=== PATIENT | male | born 1935 | race Caucasian/White ===

== ENCOUNTER 2017-03-02 14:08 | Emergency (ER) | payer MEDICARE, BC ==
[2017-03-02 14:23] VITALS: BP 146/66
--- NOTE | 2017-03-02 14:42 | UC ---
HPI Febrile Illness - HPI Summary HPI Summary: 3 days hx of fatigue, fever , chills, sever body aches, cough, chest congestion unsteady gait due to weakness no n/v/d/c , no urinary sx. - History of Current Complaint Chief Complaint: UCGeneralIllness Time Seen by Provider: 03/02/17 14:14 Hx Obtained From: Patient Onset/Duration: Started Days Ago - 3 Timing: Constant Initial Severity: Moderate Current Severity: Severe Aggravating Factors: Nothing Alleviating Factors: Nothing Associated Signs and Symptoms: Cough, Diaphoresis, Headache, Joint Pain, Myalgia , SOB, Weakness - Allergy/Home Medications Allergies/Adverse Reactions: Allergies Allergy/AdvReac Type Severity Reaction Status Date / Time Codeine Allergy Hives Verified 03/02/17 14:18 Prednisone Allergy Hives Verified 03/02/17 14:18 soaps Allergy Unknown Uncoded 03/02/17 14:18 Reaction Details Home Medications: Home Medications Mkceure-Cxnmiuz-Eaxsas Salicyl [Bengay Ultra Strength 4-10-30 %] 1 cre TOPICAL SEE INSTRUCTIONS PRN 03/02/17 [History Confirmed 03/02/17] Latanoprost 0.005%* [Xalatan 0.005%*] 1 drop BOTH EYES QPM 03/02/17 [History Confirmed 03/02/17] Losartan/HCTZ 100/25 (NF) [Hyzaar 100/25 (NF)] 1 tab PO DAILY 03/02/17 [History Confirmed 03/02/17] Metoprolol Succinate XL TAB* [Toprol XL TAB*] 12.5 mg PO DAILY 03/02/17 [ History Confirmed 03/02/17] Naproxen Sodium [Naproxen Sodium 220 mg] 220 mg PO Q12H PRN 03/02/17 [History Confirmed 03/02/17] Pravastatin Sodium [Pravachol] 40 mg PO DAILY 03/02/17 [History Confirmed ] PMH/Surg Hx/FS Hx/Imm Hx Cardiovascular History: Hypertension - Surgical History Surgical History: Yes Surgery Procedure, Year, and Place: Right INguinal Herniorrhaphy, Bilateral [facility]AY - Family History Known Family History: Positive: Hypertension - Social History Alcohol Use: None Substance Use Type: None Smoking Status (MU): Former Smoker When Did the Patient Quit Smoking/Using Tobacco: 1993 - Immunization History Most Recent Influenza Vaccination: Not the Season Review of Systems Constitutional: Fever, Chills, Fatigue Skin: Negative Eyes: Negative ENT: Negative Respiratory: Cough Cardiovascular: Negative Gastrointestinal: Negative Genitourinary: Negative Motor: Negative Musculoskeletal: Arthralgia, Myalgia Neurological: Headache, Weakness Psychological: Negative Is Patient Immunocompromised?: No All Other Systems Reviewed And Are Negative: Yes Physical Exam Triage Information Reviewed: Yes Appearance: Ill-Appearing Vital Signs: Initial Vital Signs Temp 99.1 F 03/02/17 14:15 Pulse 84 03/02/17 14:15 Resp 18 03/02/17 14:15 BP 146/66 03/02/17 14:15 Pulse Ox 98 03/02/17 14:15 Vital Signs Reviewed: Yes Eye Exam: Normal Eyes: Positive: Conjunctiva Clear ENT: Positive: Normal ENT inspection, Hearing grossly normal, Pharynx normal, Pharyngeal erythema Neck: Positive: Supple, Nontender, No Lymphadenopathy Respiratory: Positive: Chest non-tender, Decreased breath sounds Cardiovascular: Positive: RRR, No Murmur Abdominal Exam: Normal Abdomen Description: Positive: Nontender Neurological: Positive: Fatigued, Lethargic Skin Exam: Normal Course/Dx - Course Course Of Treatment: 3 days hx of fatigue, fever,. pt. look very fatiqued and weak, unsteady on his feet. would have him go [facility] ED for eval Assessment/Plan: fatigue,. fever - Diagnoses Clinic Provider Diagnoses: fatigue. fever Discharge - Discharge Plan Condition: Fair Disposition: AGAINST MEDICAL ADVICE Referrals: Nigel Lombardo MD [Primary Care Provider] -
== END 2017-03-02 14:55 | disposition left against medical advice (07) ==
LOC: UCCORT 14:08
DX: R53.83 Other fatigue (principal); Z88.6 Allergy status to analgesic agent; Z87.891 Personal history of nicotine dependence; R50.9 Fever, unspecified
CPT/HCPCS: 99213; G0463